=== PATIENT | female | born 1945 | race Caucasian/White ===

== ENCOUNTER → 2023-09-21 12:53 | Outpatient (REF) | payer MEDICARE, SELFPAY | LOC: HWRAD 12:53 | PROVIDERS: ATTENDING PHYSICIAN Internal Medicine; FAMILY PHYSICIAN Family Medicine | DX: I65.23 Occlusion and stenosis of bilateral carotid arteries (principal) | CPT/HCPCS: 93880 ==

== ENCOUNTER → 2023-12-30 12:51 | Outpatient (REF) | payer MEDICARE, SELFPAY | LOC: RCS 12:51 | PROVIDERS: ATTENDING PHYSICIAN Internal Medicine; FAMILY PHYSICIAN Family Medicine | DX: I25.10 Atherosclerotic heart disease of native coronary artery without angina pectoris (principal); I21.4 Non-ST elevation (NSTEMI) myocardial infarction; I34.0 Nonrheumatic mitral (valve) insufficiency; I35.1 Nonrheumatic aortic (valve) insufficiency; I50.32 Chronic diastolic (congestive) heart failure; I65.23 Occlusion and stenosis of bilateral carotid arteries | CPT/HCPCS: 93306 ==

== ENCOUNTER → 2024-01-21 14:50 | Outpatient (REF) | payer MEDICARE, SELFPAY | LOC: RAD 14:50 | PROVIDERS: ATTENDING PHYSICIAN Internal Medicine; FAMILY PHYSICIAN Family Medicine | DX: I25.10 Atherosclerotic heart disease of native coronary artery without angina pectoris (principal); I73.9 Peripheral vascular disease, unspecified | CPT/HCPCS: 93922; 93925 ==

== ENCOUNTER 2024-06-14 03:30 | Inpatient (IN) | payer MEDICARE, SELFPAY ==
[2024-06-14] VITALS (11 sets, daily range): BP systolic 110–177; BP diastolic 44–76; BMI 23.6; BMI 24.2
--- NOTE | 2024-06-14 01:16 | ED.GENMED ---
History of Present Illness
General
Chief Complaint: Rectal Bleeding
Source: patient
Exam Limitations: none
Time Seen by Provider: 06/14/24 01:12
History of Present Illness
History of Present Illness:
See MDM
Past History
Past History
ED Past Medical History: CAD, COPD, HTN, Hypercholesterolemia, IDDM and OH (Non-STEMI May 2020)
ED Past Surgical History: Cardiac (Stent cardiac; PTCA x3 to the RCA x1 to the LAD May 2020) and Orthopedic (ORIF right humerus fracture May 2020)
Social History
Tobacco: Former smoker
Alcohol: None
Drug: None
Personal:
Living: alone
Employment: Retired
Family History
Family History: Other (Noncontributory)
Phy Exam
Physical Exam
Physical Exam:
See MDM
Course
Orders/Labs/Results
Orders:
Orders
06/14/24 01:18
Type+Screen Urgent
Complete Blood Count/With Diff Urgent
Comprehensive Metabolic Panel Urgent
Abnormal Lab Results
06/14/24
01:18
WBC 13.4 H 10^3/uL
(4.8-10.8)
Hgb 10.8 L g/dL
(12.0-16.0)
Hct 33.9 L %
(37.0-47.0)
MCV 75.3 L fL
(81.0-99.0)
MCH 24.0 L pg
(27.0-31.0)
MCHC 31.9 L g/dL
(33.0-37.0)
RDW 18.6 H %
(11.5-14.5)
Abs Immat Gran (auto) 0.1 H 10^3/uL
(0-0.05)
Absolute Neuts (auto) 10.2 H 10^3/uL
(1.4-6.5)
Absolute Monos (auto) 0.9 H 10^3/uL
(0.1-0.6)
Neutrophils % 75.8 H %
(42.2-75.2)
Lymphocytes % 14.6 L %
(20.5-51.1)
Carbon Dioxide 19 L mmol/L
(22-30)
BUN 19 H mg/dl
(7-17)
Creatinine 0.5 L mg/dL
(0.6-1.0)
Glucose 174 H mg/dl
(70-99)
06/14/24 01:18
06/14/24 01:18
Vital Signs
Initial and Last Documented VS:
Initial Vital Signs
Temp Pulse Resp BP Pulse Ox
98.3 F 78 14 164/53 96
06/14/24 01:05 06/14/24 01:05 06/14/24 01:05 06/14/24 01:05 06/14/24 01:05
Last Documented Vital Signs
Temp Pulse Resp BP Pulse Ox
98.3 F 69 17 164/53 95
06/14/24 01:05 06/14/24 01:45 06/14/24 01:45 06/14/24 01:11 06/14/24 01:45
MDM/Problems Addressed
Differential Diagnosis Includes:
HPI and MDM Narrative:
78-year-old female presenting for evaluation of rectal bleeding. Patient noted abdominal cramping approximately 2 hours ago. Then, she has had 3 large bright red rectal bleeds. Patient states this is very similar to prior episodes of
diverticulosis. She denies abdominal pain. Patient is on blood thinners states she no longer takes Plavix. Patient states she has required blood transfusions in the past for this. At 1 point, she states the colorectal surgeon wanted to remove
part of her colon.
On exam, patient is pale but she is otherwise well-appearing. Abdomen otherwise soft and nontender. Given her history, obtain hemoglobin testing and type and screen
Physical exam
General: Well appearing and non-toxic
HEENT: protecting airway
Neck: appears supple
CV: No evidence of cyanosis
Resp: No accessory muscle use
Abd: Non-distended. Soft and nontender
Extremities: No deformities
Neuro: alert
Psych: Normal affect
Skin: Pale
Problems Addressed including Acute and Chronic Conditions affecting care:
1. Bright red rectal bleeding
Acuity: acute
Prognosis: unstable
Details: Given her prior history, will obtain hemoglobin testing and type and screen with concern for anemia requiring blood transfusion
Updates
Hemoglobin seems to be at baseline. Will admit for hemoglobin trending and further evaluation
Differential Diagnosis (but not limited to): Diverticulosis, lower GI bleeding
Testing considered: Bleeding scan
Drug therapy (if applicable): OTC meds, please see d/c instruction regarding Rx drugs
Amount and/or Complexity of Data Reviewed
Clinical info obtained from: Patient
External data reviewed: N/A
Labs I independently reviewed (but not limited to): Mild anemia
Radiology: N/A
Pulse Ox: not hypoxic
EKG independently reviewed: N/A
Coverer: N/A
Critical Care: N/A
Risk of Complication:
Social Determinants of health: Good social support
Discussed with other providers: Hospitalist
Escalation of Care includes Admit/Obs: Given history of bleeding requiring blood transfusion, will admit for hemoglobin trending
Occasional wrong word or 'sound a like' substitutions may have occurred due to the inherent limitations of voice recognition software. Read the chart carefully and recognize, using context, where substitutions have occurred.
*Critical Care Note
Total Time (30-74mins, 75-104mins- exclusive of procedures): Not Applicable
ED Attending Note
-
Portions of this chart may have been created with voice recognition software.� Occasional wrong word or��sound alike� substitutions may have occurred due to the inherent limitations of voice recognition software.
Discharge Plan
Departure
Patient Disposition: Admit
Date of Disposition: 06/14/24
Time of Disposition: 02:00
Admit to: Med/Surg
Presentation/result/management discussed w/ accepting MD/DO: Hospitalist
Discharge Problem:
Acute lower GI bleeding
Prescriptions:
No Action
lorazepam 0.5 MG tablet
0.5 mg PO HSPRN PRN (Reason: sleep)
Patient Comments:
12/10/20: last filled 12/02/20, 180 tabs for 90 days from [facility]
pantoprazole 40 MG tablet,delayed release (DR/EC)
40 mg PO DAILY
glipizide 5 MG tablet
5 mg PO BID
icosapent ethyl [Vascepa] 1 GM capsule
2 gm PO QID
evolocumab [Repatha SureClick] 140 MG/ML pen injector
140 mg SC Q14D
insulin degludec [Tresiba U-100 Insulin] 100 UNIT/ML solution
10 unit SQ HS
carvedilol 12.5 MG tablet
25 mg PO BID Qty: 60 0RF
clopidogrel 75 MG tablet
75 mg PO DAILY Qty: 30 0RF
amlodipine 2.5 MG tablet
2.5 mg PO DAILY
acetaminophen [Tylenol Extra Strength] 500 MG tablet
1,000 mg PO BIDPRN PRN (Reason: mild pain)
valsartan 80 MG tablet
80 mg PO DAILY
empagliflozin [Jardiance] 10 MG tablet
10 mg PO DAILY Qty: 90 5RF
isosorbide mononitrate 60 MG tablet extended release 24 hr
60 mg PO HS Qty: 1 0RF
metformin 1,000 MG tablet
1,000 mg PO BID@0800,1700 Qty: 1 0RF
Rx Instructions:
resume on Wednesday pm
furosemide 20 MG tablet
20 mg PO DAILY Qty: 90 5RF
aspirin 81 MG tablet,chewable
81 mg PO HS Qty: 0 0RF
Referrals:
Nadeem Torres DO [Family Provider] -
Interventions
Interventions:
*Risk Screen - Suicide Last Done: 06/14/24 01:05
*General Assessment Last Done: 06/14/24 01:05
*Neglect/Abuse Screening Last Done: 06/14/24 01:05
*ED- Fall Risk Assessment Last Done: 06/14/24 01:18
*ED COVID-19 Vaccine History Last Done: 06/14/24 01:18
XA-Sxukfb-Wvdzurzvus Assessment Last Done: 06/14/24 01:18
ED- Cardiac Assessment Last Done: 06/14/24 01:18
ED- Pulmonary Assessment Last Done: 06/14/24 01:18
Discharge Date and Time
Print Language: SAMMARINESE
[2024-06-14 01:25] LABS: % Basophils 0.5 % (0-2); % Eosinophils 2.3 % (0-6); % Immature Granulocytes 0.4 % (0-0.5); % Lymphocytes 14.6 % (20.5-51.1); % Monocytes 6.4 % (1.7-9.3); % Neutrophils 75.8 % (42.2-75.2); Absolute Basophils 0.1 10^3/uL (0-0.2); Absolute Eosinophils 0.3 10^3/uL (0-0.7); Absolute Immature Granulocytes 0.1 10^3/uL (0-0.05); Absolute Monocytes 0.9 10^3/uL (0.1-0.6); Absolute Neutrophils 10.2 10^3/uL (1.4-6.5); Hematocrit 33.9 % (37.0-47.0); Hemoglobin 10.8 g/dL (12.0-16.0); Mean Corp Hgb Conc. 31.9 g/dL (33.0-37.0); Mean Corpuscular Volume 75.3 fL (81.0-99.0); Mean Platelet Volume 8.8 fL (7.4-10.4); Nucleated Red Blood Cells % 0 %; Platelet Count 286 10^3/uL (130-400); Red Cell Dist. Width 18.6 % (11.5-14.5); White Blood Cell Count 13.4 10^3/uL (4.8-10.8)
[2024-06-14 01:52] LABS: ALT (SGPT) 19 U/L (0-35); AST (SGOT) 27 U/L (14-36); Albumin 4.8 g/dl (3.5-5.0); Alkaline Phosphatase 78 U/L (38-126); Blood Urea Nitrogen 19 mg/dl (7-17); Carbon Dioxide 19 mmol/L (22-30); Chloride 101 mmol/L (98-107); Estimated Creatinine Clearance 65 ml/min; Glucose 174 mg/dl (70-99); Potassium 4.4 mmol/L (3.5-5.1); Sodium 138 mmol/L (135-145); Total Bilirubin 0.9 mg/dl (0.2-1.3); Total Protein 7.4 g/dl (6.3-8.2); eGFR > 60.00
--- NOTE | 2024-06-14 02:47 | HPS.HSE ---
Family Physician
-
Family Physician: Nadeem Torres
Chief Complaint
-
Rectal Bleeding
History of Present Illness
Patient is a 78y F with PMH significant for ASCVD, hypertension and diverticular disease who presents to ED complaining of BRBPR. Patient states that she had 3 episodes of BRBPR between 11-12 this evening. She reports about 1 cup total volume.
She noted some crampy lower abdominal discomfort just prior to passing blood. No syncope / LOC though she did feel somewhat lightheaded at home. Patient states that she had some loose stools this afternoon. She also notes that she lifted heavy
boxes of cat liter earlier in the day - which is unusual for her. No fevers / chills. No urinary complaints. No N/V.
Patient has prior history of multiple episodes of diverticular bleeding. Most recent was October 2023 when she had two episodes (hospitalized at [facility]).
Patient was on Plavix at that time which was subsequently discontinued. She is currently only on ASA (has 7 coronary stents).
Medical History
Past Medical History
Past Medical History: Reports Other
Additional Past Medical History:
ASCVD
Hypertension
DM-II
COPD
Polymyositis
Diverticulosis
Past Surgical History: Reports Other
Additional Past Surgical History:
Left Lumpectomy
Cataracts
Right Humerus ORIF
PTCA with Stents
Social History
Tobacco: Former Smoker (Quit in 2000.)
Alcohol: None
Drug: None
Family History
Family History: Not pertinent
Allergies / Home Medications
Allergies reflects when Allergies were last updated in [facility].
Home Medications with original date entered in [facility]
Allergy/Medication List:
Allergies
Allergy/AdvReac Type Severity Reaction Status Date / Time
adhesive Allergy Unknown Verified 12/10/20 11:40
Home Medications
evolocumab 140 mg/mL subcutaneous pen injector (Repatha SureClick) 140 mg SC Q14D High cholesterol 05/22/20
icosapent ethyl 1 gram capsule (Vascepa) 2 gm PO QID Heart disease/condition 05/22/20
lorazepam 0.5 mg tablet 0.5 mg PO HSPRN PRN sleep 05/22/20
pantoprazole 40 mg tablet,delayed release 40 mg PO DAILY 05/22/20
insulin degludec 100 unit/mL subcutaneous solution (Tresiba U-100 Insulin) 14 unit SQ HS Diabetes 08/11/20
carvedilol 12.5 mg tablet 25 mg (2 x 12.5 mg) PO BID Heart disease/condition #60 tabs 08/13/20
valsartan 80 mg tablet 80 mg PO DAILY Heart disease/condition 12/10/20
aspirin 81 mg chewable tablet 81 mg PO HS Blood clot prevention/tx ##0 12/12/20
empagliflozin 10 mg tablet (Jardiance) 10 mg PO DAILY #90 tabs 12/12/20
furosemide 20 mg tablet 20 mg PO DAILY Fluid retention/Swelling #90 tabs 12/12/20
isosorbide mononitrate 60 mg tablet,extended release 24 hr 60 mg PO HS ##1 12/12/20
metformin 1,000 mg tablet 1,000 mg PO BID@0800,1700 Diabetes ##1 12/12/20
ezetimibe 10 mg tablet (Zetia) 10 mg PO DAILY 06/14/24
Review of Systems
-
History Source: Patient
A 12 point ROS was completed and negative except as noted: Yes
Constitutional: Denies Fever or Chills
Respiratory: Denies Cough or Trouble Breathing
Cardiac: Denies Chest Pain or Palpitations
Abdomen/GI: Reports Diarrhea and Bloody Stools; Denies Abdominal Pain, Nausea or Vomiting
: Denies Dysuria, Frequency or Flank Pain
Musculoskeletal: Denies Joint Pain or Edema
Neurological: Denies Dizzy or Headache
Psych: Denies Depression or Anxiety
Physical Exam
Vital Signs
Vital Signs
Temp Pulse Resp BP Pulse Ox
98.3 F 76 19 130/51 94
06/14/24 01:05 06/14/24 02:00 06/14/24 02:00 06/14/24 02:00 06/14/24 02:00
Physical Exam
General: Other (78y F in no acute distress.)
HEENT: Moist mucous membranes and PERRLA
Respiratory: Clear; No Wheezes, Rales or Rhonchi
Cardiac: S1/S2 and Regular Rhythm; No Murmur
GI: Soft, Non Tender, Non Distended and Normal Bowel Sounds
Musculoskeletal: No Clubbing, No Cyanosis and No Edema
Neuro: AO x 3
Laboratory Results
-
06/14/24 01:18
06/14/24 01:18
Laboratory Results
Total Bilirubin 0.9 mg/dl (0.2-1.3) 06/14/24 01:18
AST 27 U/L (14-36) 06/14/24 01:18
ALT 19 U/L (0-35) 06/14/24 01:18
Alkaline Phosphatase 78 U/L (38-126) 06/14/24 01:18
Impression/Plan
-
A/P: Patient is a 78y F with PMH significant for hypertension, DM-II and diverticular disease who presents to ED complaining of BRBPR this evening.
Lower GI Bleed - Likely Diverticular
Microcytic Anemia secondary to the above
- Admit for further evaluation and treatment.
- Hgb / BP stable at present.
- Follow for further bleeding episodes.
- Consider CTA if additional bleeding, hypotension, etc.
- GI evaluation for additional recommendations.
- Follow H&H and transfuse if needed.
ASCVD
- Stable. No chest pain, dyspnea, etc.
- Hold ASA acutely given active bleeding - resume ESTHER.
- Continue carvedilol, statin, etc.
Benign Hypertension
- Hold some home medications acutely given bleeding / volume loss.
- Adjust regimen as needed for adequate control.
DM-II
- Stable. Hold PO medications.
- Follow glucose and cover with SSI as needed.
- Update A1C.
COPD
- Stable. No dyspnea, etc.
- Albuterol PRN.
DVT Prophylaxis: SCDs
Code Status: Full
[2024-06-14 03:29] LABS: Lactic Acid 3.8 mmol/L (0.7-2.0)
[2024-06-14 06:16] LABS: Glucose - Point of Care 122 mg/dl (70-99)
[2024-06-14] MEDS: NOVOLOG FLEXPEN-LOW RESISTANCE SC ×2 (06:18→17:36)
[2024-06-14 06:22] LABS: Hematocrit 30.2 % (37.0-47.0); Hemoglobin 9.8 g/dL (12.0-16.0)
[2024-06-14 06:49] LABS: Blood Urea Nitrogen 19 mg/dl (7-17); Calcium 9.9 mg/dl (8.4-10.2); Carbon Dioxide 24 mmol/L (22-30); Chloride 102 mmol/L (98-107); Estimated Creatinine Clearance 62 ml/min; Glucose 132 mg/dl (70-99); Potassium 4.1 mmol/L (3.5-5.1); Sodium 137 mmol/L (135-145); eGFR > 60.00
--- NOTE | 2024-06-14 08:30 | W.PN.HOSP.TC ---
Today's Communication/Plan
-
See plan
Assessment / Plan
Assessment / Plan
Physical Exam
General: Not in acute distress
HEENT: Moist mucous membranes
Respiratory: Clear to Auscultation Bilaterally
Cardiac: S1/S2 and Regular Rate and Rhythm
GI: Soft, Non Tender, Non Distended and Normal Bowel Sounds
Musculoskeletal: No Cyanosis and No Edema
Neuro: AAO x 3. Nonfocal/grossly intact bilaterally.
Assessment/Plan
Patient is a 78y F with PMH significant for hypertension, DM-II and diverticular disease who presents to ED complaining of BRBPR this evening.
Lower GI Bleed - Likely Diverticular
Microcytic Anemia secondary to the above
History of Iron Deficiency Anemia
- Hgb / BP stable at present.
- Follow for further bleeding episodes.
- Consider CTA if additional bleeding, hypotension, etc.
- GI evaluation for additional recommendations.
- Follow H&H and transfuse if needed.
- IV iron
- PPI daily
- Okay for clear liquids diet
ASCVD
- Stable. No chest pain, dyspnea, etc.
- Continue Aspirin 81 mg daily. Patient's high-dose fish oil is currently on hold due to risk of bleeding.
- Continue carvedilol, statin, etc.
- Patient follows Dr. Cantu in cardiology outpatient
Benign Hypertension
- Adjust regimen as needed for adequate control.
DM-II
- Stable. Hold PO medications.
- Follow glucose and cover with SSI as needed.
- A1C is 6.5% -- but this could be false given bleeding and the history of iron deficiency anemia
COPD
- Stable. No dyspnea, etc.
- Albuterol PRN.
DVT Prophylaxis: SCDs
Code Status: Full
Anticipated Discharge: 24 - 48 hours
Subjective/Interval History
-
Date of Service: June 14, 2024
Patient was seen and examined. She denied any bowel movements this morning. She denied any symptoms or complaints.
Objective Data
-
Labs:
Laboratory Results
06/14/24 06/14/24 06/14/24
01:18 05:43 10:16
WBC 13.4 H
Hgb 10.8 L 9.8 L Pending
Hct 33.9 L 30.2 L Pending
Plt Count 286
Sodium 138 137
Potassium 4.4 4.1
Chloride 101 102
Carbon Dioxide 19 L 24
BUN 19 H 19 H
Creatinine 0.5 L 0.5 L
Glucose 174 H 132 H
Calcium 10.0 9.9
Total Bilirubin 0.9
AST 27
ALT 19
Alkaline Phosphatase 78
06/14/24 06/14/24
16:16 22:16
WBC
Hgb Pending Pending
Hct Pending Pending
Plt Count
Sodium
Potassium
Chloride
Carbon Dioxide
BUN
Creatinine
Glucose
Calcium
Total Bilirubin
AST
ALT
Alkaline Phosphatase
Vital Signs:
Vital Signs
Temp Pulse Resp BP Pulse Ox
98 F 73 18 137/58 97
06/14/24 08:02 06/14/24 08:02 06/14/24 08:02 06/14/24 08:02 06/14/24 08:02
[2024-06-14] MEDS: PROTONIX IV 40 MG IV (09:06)
[2024-06-14] MEDS: COREG 25 MG PO ×2 (09:06→19:40)
[2024-06-14] MEDS: DIOVAN 80 MG PO (09:06)
[2024-06-14] MEDS: NSS (PRESERVATIVE FREE) 10 ML IV (09:06)
[2024-06-14 09:21] LABS: Glycohemoglobin (HgbA1c) 6.5 % (4.0-5.6)
--- NOTE | 2024-06-14 09:33 | CON.GI ---
Addendum entered and electronically signed by Adenike Martinez DO 06/14/24 11:17:
Patient seen and examined independently of [employer]SE DEVELOPER. I agree with her note with my additions below
Patricia is a 78-year-old female with significant cardiovascular disease status post multiple stents known to Dr. Cantu currently only on aspirin because of multiple prior diverticular bleeds and chronic iron deficiency anemia who was admitted to
[facility] on 06/14/2024 with recurrent lower GI bleeding. She has had a roughly 5 admissions for diverticular bleeding dating back to 2018 with most recent bleeds in October 2023 at [facility]. She has had no admissions here at [facility] for these
bleeds. She has been at [facility], [facility] and [facility] with most recent at [facility] in October 2023. She often gets transfused. She states she has had positive bleeding scans both at the splenic flexure and the left colon. She
had a surgical consult but refused at that time. Also back in the summer 2023 she was on both aspirin and Plavix. Because of her persistent bleeding and also persistent iron deficiency anemia she was taken off the Plavix and left only on iron.
She is also on high-dose fish oil. She is also diabetic. She has had no abdominal surgeries.
At home she had roughly 3-4 episodes of about less than a cup of bright red blood. She had no significant abdominal pain. She did feel a little lightheaded at 1 point. Her hemoglobin on admission was 10.8 and this morning 10.2. Her baseline is
between 9 and 10. She states she is chronically iron deficient and gets iron infusions outpatient. She had an iron deficiency workup as well with Dr. Ghosh at [place] in the past including an endoscopy, capsule endoscopy and she has had multiple
colonoscopies with no other source per patient other than her chronic diverticular bleeds. She states she has pandiverticulosis.
Currently she is hemodynamically stable with a blood pressure of 137/58 with a heart rate of 73. She has beta blocked. Her MCV is 75 her liver enzymes are normal her BUN is mildly elevated at 19 with a creatinine of 0.5. She does have antibodies
to her O- blood.
Patient denies any significant upper GI symptoms. Her GI doctor that she saw with [facility] was Dr. Jean Baptiste
# Hemodynamically stable hematochezia with no significant drop in baseline hemoglobin
-- Based on the patient's known diverticular bleeds in the past as well as her clinical presentation this is most likely a recurrent diverticular bleed
-- She is currently hemodynamically stable and her hemoglobin is at baseline
-- No transfusion requirement
- -Will give her IV iron with an MCV of 75 and known iron deficiency outpatient, added on ferritin to this morning's labs
-- Once daily PPI is fine, continue her aspirin. Her high dose fish oil is currently on hold
--She is known to Dr. Cantu in cardiology
--Okay for clear liquids, monitor clinical status and hemoglobins
Original Note:
Consultation
-
Date/Time Consultation Requested: 06/14/241
Date/Time Consultation Performed: 06/14/24 [id number]
Requesting Provider: Dr. Spicer
Performing Provider: Dr. Martinez/MARVIN Mckee
Reason for Consultation: rectal bleeding
Medical History
Chief Complaint / HPI
Chief Complaint: Rectal bleeding
History of Present Illness:
78-year-old female with past medical history of CAD status postcardiac stents (05/2020), non-ST elevated MT, pericardial effusion, nonrheumatic mitral valve regurgitation, nonrheumatic aortic valve insufficiency, chronic heart failure with preserved
ejection fraction, COPD, hypertension, hyperlipidemia, multiple episodes of diverticular bleeding dating back to 2018 with most recent in October 2023 presents to the emergency room with rectal bleeding. Asked to evaluate for the same. The patient
states last night around 11 PM she had an episode of rumbling and urgency to have a bowel movement followed by quarter cup of bright red blood. Shortly after she had an episode of approximately half a cup of bright red blood followed by 1/8 of a
cup of bright red blood. At that point she came to the hospital given her prior history of GI bleeds. She has not had any further episodes of bleeding since. No bowel movements. She is passing flatus. She did feel slightly weak last evening.
She does have an extensive history of GI bleeding in the past. The patient's prior GI history of rectal bleeding dates back to her first episode of rectal bleeding in 2018 with diverticular bleeding requiring blood transfusions at that time.
([facility]) she states they thought that it was associated with Aleve. She had a second diverticular bleed in 2018 ([facility]) requiring blood transfusions, she states that the sites of bleeding's were in the 'lower part of the
colon below the splenic flexure'. The patient's second and third GI bleeding occurred in October 2023 ([facility]) while on Plavix. She required IR intervention, however she states she stopped bleeding by the time the procedure was
performed. She did state that the area of concern was in the area of the 'spleen part of the colon' she did require blood during that hospitalization as well. She came back 8 days later with recurrent GI bleed. She did not require any blood
transfusions on that admission. She did have a colonoscopy. It did confirm area of diverticular bleeding. She was taken off Plavix at this point. Currently the patient is only taken aspirin 81 mg at bedtime. She does not use any other NSAIDs.
She is on Vascepa. She only uses Tylenol. She make sure to follow a very good diet and has soft formed bowel movement at least twice a day. She avoids any sort of constipation. She denies any fevers, chills, nausea, vomiting, melena, dysphagia
or dyne aphasia. No early satiety or unintentional weight loss. Prior to the colonoscopy she had in October her prior colonoscopy was 2 years prior to that. She denies any family history of gastrointestinal malignancy or IBD. WBC 13.4, hemoglobin
9.8 down from 10.8, hematocrit 30.2, platelets 286. Vital signs stable. Blood pressure 137/58 pulse 73. No imaging.
Past Medical History
Past Medical History: CAD, COPD, HTN, IDDM and Other (Diverticular bleed x 5, polymyositis, non-ST elevated MT, pericardial effusion, nonrheumatic mitral valve regurgitation, nonrheumatic aortic valve insufficiency chronic heart failure with
preserved ejection fraction, breast cancer)
Past Surgical History: Other (Left breast lumpectomy, cataracts, right humerus ORIF, cardiac stent)
Social History
Tobacco: Non-Smoker
Alcohol: None
Drug: None
Personal:
Living: Alone
Employment: Retired
Family History
Family History: Other (No family history of gastrointestinal malignancy or IBD)
Allergies / Home Medications
Allergy/AdvReac Type Severity Reaction Status Date / Time
adhesive Allergy Unknown Verified 12/10/20 11:40
�Medication �Instructions �Recorded
evolocumab 140 mg/mL subcutaneous 140 mg SC Q14D High cholesterol 05/22/20
pen injector (Repatha SureClick)
icosapent ethyl 1 gram capsule 2 gm PO QID Heart disease/condition 05/22/20
(Vascepa)
lorazepam 0.5 mg tablet 0.5 mg PO HSPRN PRN sleep 05/22/20
pantoprazole 40 mg tablet,delayed 40 mg PO DAILY 05/22/20
release
insulin degludec 100 unit/mL 14 unit SQ HS Diabetes 08/11/20
subcutaneous solution (Tresiba
U-100 Insulin)
carvedilol 12.5 mg tablet 25 mg (2 x 12.5 mg) PO BID Heart 08/13/20
disease/condition #60 tabs
valsartan 80 mg tablet 80 mg PO DAILY Heart 12/10/20
disease/condition
aspirin 81 mg chewable tablet 81 mg PO HS Blood clot 12/12/20
prevention/tx ##0
empagliflozin 10 mg tablet 10 mg PO DAILY #90 tabs 12/12/20
(Jardiance)
furosemide 20 mg tablet 20 mg PO DAILY Fluid 12/12/20
retention/Swelling #90 tabs
isosorbide mononitrate 60 mg 60 mg PO HS ##1 12/12/20
tablet,extended release 24 hr
metformin 1,000 mg tablet 1,000 mg PO BID@0800,1700 Diabetes 12/12/20
##1
ezetimibe 10 mg tablet (Zetia) 10 mg PO DAILY 06/14/24
Review of Systems
-
All other systems: A 12 pt ROS was Negative except as stated above in HPI
Vital Signs
Temp Pulse Resp BP Pulse Ox
98 F 73 18 137/58 97
06/14/24 08:02 06/14/24 09:06 06/14/24 08:02 06/14/24 09:06 06/14/24 08:02
Physical Exam
Exam
General: No Apparent Distress
HEENT: Anicteric
Respiratory: Clear
Cardiac: Regular Rhythm
GI: Soft, Non Tender, Non Distended and Normal Bowel Sounds
Musculoskeletal: No Edema
Skin: Warm and Dry
Neuro: AO x 3
Psych: Calm
Results
WBC 13.4 10^3/uL (4.8-10.8) H 06/14/24 01:18
Hgb 9.8 g/dL (12.0-16.0) L 06/14/24 05:43
Hct 30.2 % (37.0-47.0) L 06/14/24 05:43
MCV 75.3 fL (81.0-99.0) L 06/14/24 01:18
Plt Count 286 10^3/uL (130-400) 06/14/24 01:18
Absolute Neuts (auto) 10.2 10^3/uL (1.4-6.5) H 06/14/24 01:18
Sodium 137 mmol/L (135-145) 06/14/24 05:43
Potassium 4.1 mmol/L (3.5-5.1) 06/14/24 05:43
Chloride 102 mmol/L (98-107) 06/14/24 05:43
Carbon Dioxide 24 mmol/L (22-30) 06/14/24 05:43
BUN 19 mg/dl (7-17) H 06/14/24 05:43
Creatinine 0.5 mg/dL (0.6-1.0) L 06/14/24 05:43
Calcium 9.9 mg/dl (8.4-10.2) 06/14/24 05:43
Total Bilirubin 0.9 mg/dl (0.2-1.3) 06/14/24 01:18
AST 27 U/L (14-36) 06/14/24 01:18
ALT 19 U/L (0-35) 06/14/24 01:18
Alkaline Phosphatase 78 U/L (38-126) 06/14/24 01:18
Diagnostic Image Results:
None
Prior GI Procedures:
EGD: Never
Colonoscopy: Patient states had colonoscopy at [facility] October 2023. Records unavailable to myself. States she had 'diverticulosis throughout her entire large bowel'
Assessment / Plan
-
78-year-old female with past medical history of CAD status postcardiac stents (05/2020), non-ST elevated MT, pericardial effusion, nonrheumatic mitral valve regurgitation, nonrheumatic aortic valve insufficiency, chronic heart failure with preserved
ejection fraction breast cancer, COPD, hypertension, hyperlipidemia, multiple episodes of diverticular bleeding dating back to 2017 with most recent in October 2023 presents to the emergency room with rectal bleeding. Asked to evaluate for the same.
The patient states last night around 11 PM she had an episode of rumbling and urgency to have a bowel movement followed by quarter cup of bright red blood. Shortly after she had an episode of approximately half a cup of bright red blood followed by
1/8 of a cup of bright red blood. At that point she came to the hospital given her prior history of GI bleeds. Patient with history of multiple GI bleeds presumed to be diverticular in nature per patient involving sigmoid colon while on Aleve in
the past (2017), unprovoked by NSAIDs in 2018, both requiring blood product transfusion. Repeat GI bleed October 2023 in the area of the splenic flexure while on aspirin and Plavix requiring blood transfusion and IR intervention for the first event,
however stopped bleeding spontaneously. Second event 8 days later requiring colonoscopy. At that point no blood products and required. Taken off Plavix at that point. Has remained on aspirin ever since. Currently presents with acute onset of
bleeding last night at 11 PM that is painless starting with quarter cup of blood, followed by half cup of bright red blood then eighth cup of blood with no further bowel movements since arrival to emergency room. No bowel movements. Passing
flatus. Feeling of weakness hemoglobin currently 9.8 down from 10.8. Vital signs stable.
Impression:
Lower GI bleed, most likely diverticular in nature given prior history
Plan:
-Clear liquid diet, no red
-ASA has been held however given hx of multiple stents in the past would favor resuming.
-Trend Hgb
-CTA if with active GI bleeding
-Transfuse for Hgb < 7
-Obtain colonoscopy report from [facility]
-Hold Vascepa (at this time) as can increase risk of bleeding.
-Further recommendations to be forthcoming.
-
-
Thank you for consultation and allowing me to participate in the patient's care. Please call the operational intelligence analyst GI physician during the after hours with any questions or concerns.
[2024-06-14 10:21] LABS: % Basophils 0.6 % (0-2); % Immature Granulocytes 0.2 % (0-0.5); % Lymphocytes 25.8 % (20.5-51.1); % Monocytes 8.1 % (1.7-9.3); % Neutrophils 62.3 % (42.2-75.2); Absolute Eosinophils 0.2 10^3/uL (0-0.7); Absolute Lymphocytes 1.6 10^3/uL (1.2-3.4); Absolute Monocytes 0.5 10^3/uL (0.1-0.6); Absolute Neutrophils 3.9 10^3/uL (1.4-6.5); Hematocrit 31.7 % (37.0-47.0); Hemoglobin 10.2 g/dL (12.0-16.0); Mean Corp Hgb Conc. 32.2 g/dL (33.0-37.0); Mean Corpuscular Hgb 24.3 pg (27.0-31.0); Mean Corpuscular Volume 75.5 fL (81.0-99.0); Mean Platelet Volume 8.9 fL (7.4-10.4); Nucleated Red Blood Cells % 0 %; Platelet Count 273 10^3/uL (130-400); Red Cell Dist. Width 18.5 % (11.5-14.5); White Blood Cell Count 6.3 10^3/uL (4.8-10.8)
[2024-06-14 10:33] LABS: Lactic Acid 1.1 mmol/L (0.7-2.0)
[2024-06-14 12:06] LABS: Glucose - Point of Care 187 mg/dl (70-99)
[2024-06-14] MEDS: NOVOLOG FLEXPEN-LOW RESISTANCE 1 UNITS SC (12:34)
[2024-06-14] MEDS: LOW STRENGTH ASPIRIN 81 MG PO ×2 (12:34→19:40)
[2024-06-14] MEDS: ZETIA 10 MG PO (12:34)
[2024-06-14 12:46] LABS: Iron 33 ug/dl (37-170)
[2024-06-14 13:19] LABS: Ferritin 7.7 ng/ml (11.1-264.0)
[2024-06-14] MEDS: FERRLECIT 110 MG IV (13:52)
--- NOTE | 2024-06-14 16:22 | CM ---
Alert awake oriented patient who lives alone in a 1 story home with 1 steps to enter. She is independent in activates of daily living.She does drive .She used a cane.Offered Vn she declined .
She said her son would drive her home at mo.
Had [facility] in past . No SNF hx
Pharmacy [facility]
PCP Dr Huang
PLAN Home with no needs
[2024-06-14 16:51] LABS: Glucose - Point of Care 117 mg/dl (70-99)
[2024-06-14 17:02] LABS: Hemoglobin 10.5 g/dL (12.0-16.0)
[2024-06-14] MEDS: IMDUR (EXTENDED RELEASE) 60 MG PO (20:29)
[2024-06-14 21:06] LABS: Glucose - Point of Care 160 mg/dl (70-99)
[2024-06-14 22:58] LABS: Hematocrit 27.9 % (37.0-47.0); Hemoglobin 9.1 g/dL (12.0-16.0)
[2024-06-15 03:59] VITALS: BP 141/57
[2024-06-15 04:58] VITALS: BMI 23.6
[2024-06-15 06:21] LABS: Hematocrit 28.7 % (37.0-47.0); Hemoglobin 9.1 g/dL (12.0-16.0); Mean Corp Hgb Conc. 31.7 g/dL (33.0-37.0); Mean Corpuscular Hgb 23.9 pg (27.0-31.0); Mean Corpuscular Volume 75.5 fL (81.0-99.0); Platelet Count 241 10^3/uL (130-400); Red Cell Dist. Width 18.4 % (11.5-14.5); White Blood Cell Count 5.5 10^3/uL (4.8-10.8)
[2024-06-15 06:49] LABS: Blood Urea Nitrogen 13 mg/dl (7-17); Calcium 9.5 mg/dl (8.4-10.2); Carbon Dioxide 24 mmol/L (22-30); Chloride 106 mmol/L (98-107); Estimated Creatinine Clearance 62 ml/min; Glucose 131 mg/dl (70-99); Potassium 3.8 mmol/L (3.5-5.1); Sodium 138 mmol/L (135-145); eGFR > 60.00
[2024-06-15 08:07] VITALS: BP 130/53
[2024-06-15 08:32] LABS: Glucose - Point of Care 127 mg/dl (70-99)
[2024-06-15] MEDS: NOVOLOG FLEXPEN-LOW RESISTANCE SC ×2 (09:26→16:47)
[2024-06-15] MEDS: DIOVAN 80 MG PO (09:27)
[2024-06-15] MEDS: ZETIA 10 MG PO (09:27)
[2024-06-15] MEDS: PROTONIX IV 40 MG IV (09:27)
[2024-06-15] MEDS: COREG 25 MG PO ×2 (09:27→20:02)
[2024-06-15] MEDS: NSS (PRESERVATIVE FREE) 10 ML IV (09:28)
--- NOTE | 2024-06-15 11:02 | W.PN.GI.CBS2 ---
Addendum entered and electronically signed by Adenike Martinez DO 06/15/24 16:48:
Patient seen and examined independently of INSTRUCTIONAL CONSULTANT. I agree with her note with my additions below
Patricia has had 3 episodes from yesterday until this morning but no further since this morning. Her vital signs are stable. She is not tachycardic but she has beta-blockers. Her hemoglobin stable. She is getting IV iron. She is not symptomatic in
any way
-- Advance to full liquids
-- no need for any bleeding studies since she is barely bleeding and it will be negative
--- Bleeding studies are only helpful if patients are rapidly bleeding and practically unstable
-- Told patient she should highly consider talking to colorectal surgery since this is her sixth diverticular bleed all from the left side -we do not have her imaging of these prior bleeds as they are from multiple institutions including [place]
[place] [facility]
-- Patient is willing to talk to colorectal surgery. If she continues to bleed we will call them or she can see them outpt for a conversation
-- She wants to follow-up with us outpatient and I am happy to see her in follow-up
Original Note:
Today's Communication / Plan
-
1 brown stool with streaks of blood 7pM 06/14, burgundy stool overnight, then moderate stool with clots 11 AM 06/15
reviewed with patient she has hx multiple GI bleed with prior + CTA then neg angio
will monitor for now -- if further bleeding today proceed with CTA if + angio
hbg stable 9.1 transfuse less than 7
I discussed Vascepa -- she will review with Dr. Cantu of follow up for continuing medication
cont PPI daily
ok for clear diet as tolerated
await [place] records
she has seen Dr. Ghosh for years when she lived in [place]. She now lives locally and wishes to keep all care at [facility] as follow here for cardiac care. Will need GI follow up on discharge.
Assessment / Plan
-
78-year-old female with past medical history of CAD status postcardiac stents (05/2020), non-ST elevated CT, pericardial effusion, nonrheumatic mitral valve regurgitation, nonrheumatic aortic valve insufficiency, chronic heart failure with preserved
ejection fraction breast cancer, COPD, hypertension, hyperlipidemia, multiple episodes of diverticular bleeding dating back to 2017 with most recent in October 2023 presents to the emergency room with rectal bleeding. The patient states prior to
admission 11 PM she had an episode of rumbling and urgency to have a bowel movement followed by quarter cup of bright red blood. Shortly after she had an episode of approximately half a cup of bright red blood followed by 1/8 of a cup of bright red
blood. At that point she came to the hospital given her prior history of GI bleeds. Patient with history of multiple GI bleeds presumed to be diverticular in nature per patient involving sigmoid colon while on Aleve in the past (2017), unprovoked
by NSAIDs in 2018, both requiring blood product transfusion. Repeat GI bleed October 2023 in the area of the splenic flexure while on aspirin and Plavix requiring blood transfusion and IR intervention for the first event, however stopped bleeding
spontaneously. Second event 8 days later requiring colonoscopy. At that point no blood products and required. Taken off Plavix at that point. Has remained on aspirin ever since. She states she is chronically iron deficient and gets iron
infusions outpatient. She had an iron deficiency workup as well with Dr. Ghosh at [place] in the past including an endoscopy, capsule endoscopy and she has had multiple colonoscopies with no other source per patient other than her chronic
diverticular bleeds. She states she has pandiverticulosis. Her GI doctor that she saw with [facility] was Dr. Jean Baptiste
Laboratory Tests
06/14/24 06/14/24 06/14/24
05:43 10:01 16:51
Hgb 9.8 L 10.2 L 10.5 L
06/14/24 06/15/24
22:48 05:48
Hgb 9.1 L 9.1 L
Impression:
Lower GI bleed, most likely diverticular in nature given prior history
hx multiple GI bleeding in past
Plan:
1 brown stool with streaks of blood 7pM 06/14, burgundy stool overnight, then moderate stool with clots 11 AM 06/15
reviewed with patient she has hx multiple GI bleed with prior + CTA then neg angio
will monitor for now -- if further bleeding today proceed with CTA if + angio
hbg stable 9.1 transfuse less than 7
I discussed Vascepa -- she will review with Dr. Cantu of follow up for continuing medication
cont PPI daily
ok for clear diet as tolerated
await [place] records
she has seen Dr. Ghosh for years when she lived in [place]. She now lives locally and wishes to keep all care at [facility] as follow here for cardiac care. Will need GI follow up on discharge.
Subjective
Subjective
Date of Service: June 15, 2024
06/15/ bloody stool on clear diet
Objective
Data Reviewed
Laboratory Data:
Laboratory Results
06/15/24 05:48
06/15/24 05:48
Laboratory Results
Total Bilirubin 0.9 mg/dl (0.2-1.3) 06/14/24 01:18
AST 27 U/L (14-36) 06/14/24 01:18
ALT 19 U/L (0-35) 06/14/24 01:18
Alkaline Phosphatase 78 U/L (38-126) 06/14/24 01:18
Vital Signs and I&O:
Vital Signs
Temp Pulse Resp BP Pulse Ox
98 F 72 18 130/53 97
06/15/24 08:07 06/15/24 09:27 06/15/24 08:07 06/15/24 09:27 06/15/24 10:08
I&O
06/14/24 06/15/24 06/16/24
06:59 06:59 06:59
Intake Total 480 / 480
Balance 480 / 480
Physical Exam
Physical Exam
HEENT: Anicteric and Moist mucous membranes
Cardiology: Normal Sinus Rhythm
Pulmonary: Clear
GI: Soft, Non Distended and Tender (very minimal left sided tenderness )
Extremities: No Edema
Neuro: Non Focal
[2024-06-15 11:16] VITALS: BP 127/59
[2024-06-15 11:44] LABS: Glucose - Point of Care 262 mg/dl (70-99)
[2024-06-15] MEDS: NOVOLOG FLEXPEN-LOW RESISTANCE 3 UNITS SC (12:43)
[2024-06-15] MEDS: FERRLECIT 110 MG IV (13:23)
[2024-06-15 14:51] LABS: Hematocrit 29.9 % (37.0-47.0); Hemoglobin 9.6 g/dL (12.0-16.0)
--- NOTE | 2024-06-15 14:57 | W.PN.HOSP.TC ---
Today's Communication/Plan
-
Patient continues to have bloody stools/clots as of today
Discussed with GI, perform stat CTA angio if patient has multiple bloody or tarry dark large volume stools in a row
RBC transfusion to maintain Hgb>8
Assessment / Plan
Assessment / Plan
Physical Exam
General: Not in acute distress
HEENT: Moist mucous membranes
Respiratory: Clear to Auscultation Bilaterally
Cardiac: S1/S2 and Regular Rate and Rhythm
GI: Soft, Non Tender, Non Distended and Normal Bowel Sounds
Musculoskeletal: No Cyanosis and No Edema
Neuro: AAO x 3. Nonfocal/grossly intact bilaterally.
Assessment/Plan
Patient is a 78y F with PMH significant for hypertension, DM-II and diverticular disease who presents to ED complaining of BRBPR this evening.
Lower GI Bleed - Likely Diverticular
Microcytic Anemia secondary to the above
History of multiple GI bleed with prior + CTA then neg angio
History of Iron Deficiency Anemia
- Hgb / BP stable at present, but patient continues to have bloody stools/clots as of today
- If further bleeding today proceed with CTA if + angio
- GI evaluation for additional recommendations.
- Follow H&H and transfuse as needed to maintain
- IV iron
- Continue PPI daily
- Okay for clear liquids diet as tolerated
CAD status postcardiac stents (05/2020)
Non-ST elevated MO
ASCVD
- Stable. No chest pain, dyspnea, etc.
- Continue Aspirin 81 mg daily. Patient's high-dose fish oil (Vascepa) is currently on hold due to risk of bleeding -- patient will discuss with Dr. Cantu regarding whether to resume this medication
- Continue carvedilol, statin, etc.
- Patient follows Dr. Cantu in cardiology outpatient
Benign Hypertension
- Adjust regimen as needed for adequate control.
DM-II
- Stable. Hold PO medications.
- Follow glucose and cover with SSI as needed.
- A1C is 6.5% -- but this could be false given bleeding and the history of iron deficiency anemia
COPD
- Stable. No dyspnea, etc.
- Albuterol PRN.
Hyperlipidemia
History of pericardial effusion
History of nonrheumatic mitral valve regurgitation
History of nonrheumatic aortic valve insufficiency
Chronic heart failure with preserved ejection fraction
Breast cancer
DVT Prophylaxis: SCDs only.
Code Status: Full
Anticipated Discharge: > 48 hours
Subjective/Interval History
-
Date of Service: June 15, 2024
Patient was seen and examined. She continued to have bloody stools and clots overnight and this morning.
Objective Data
-
Labs:
Laboratory Results
06/15/24 06/15/24
05:48 14:12
WBC 5.5
Hgb 9.1 L 9.6 L
Hct 28.7 L 29.9 L
Plt Count 241
Sodium 138
Potassium 3.8
Chloride 106
Carbon Dioxide 24
BUN 13
Creatinine 0.5 L
Glucose 131 H
Calcium 9.5
Vital Signs:
Vital Signs
Temp Pulse Resp BP Pulse Ox
98 F 65 18 127/59 97
06/15/24 11:16 06/15/24 11:16 06/15/24 11:16 06/15/24 11:16 06/15/24 11:16
I&O
06/14/24 06/15/24 06/16/24
06:59 06:59 06:59
Intake Total 480 / 480
Balance 480 / 480
--- NOTE | 2024-06-15 16:05 | PTCARENOTE ---
Assumed care of patient at 15:00. No noted changes in assessment.
[2024-06-15 16:15] VITALS: BP 164/64
[2024-06-15 16:48] LABS: Glucose - Point of Care 144 mg/dl (70-99)
[2024-06-15 19:45] VITALS: BP 163/64
[2024-06-15] MEDS: LOW STRENGTH ASPIRIN 81 MG PO (20:02)
[2024-06-15] MEDS: IMDUR (EXTENDED RELEASE) 60 MG PO (20:02)
[2024-06-15 21:24] LABS: Glucose - Point of Care 194 mg/dl (70-99)
[2024-06-15 23:31] VITALS: BP 122/49
[2024-06-16 03:21] VITALS: BP 98/52
[2024-06-16 05:49] VITALS: BMI 23.7
[2024-06-16 06:40] LABS: Hematocrit 28.2 % (37.0-47.0); Hemoglobin 8.9 g/dL (12.0-16.0); Mean Corp Hgb Conc. 31.6 g/dL (33.0-37.0); Mean Corpuscular Hgb 24.2 pg (27.0-31.0); Mean Corpuscular Volume 76.6 fL (81.0-99.0); Mean Platelet Volume 9.3 fL (7.4-10.4); Platelet Count 257 10^3/uL (130-400); Red Blood Cell Count 3.68 10^6/uL (4.20-5.40); Red Cell Dist. Width 18.6 % (11.5-14.5); White Blood Cell Count 5.9 10^3/uL (4.8-10.8)
[2024-06-16 07:08] LABS: Blood Urea Nitrogen 11 mg/dl (7-17); Calcium 9.4 mg/dl (8.4-10.2); Carbon Dioxide 23 mmol/L (22-30); Chloride 102 mmol/L (98-107); Estimated Creatinine Clearance 62 ml/min; Glucose 138 mg/dl (70-99); Potassium 3.9 mmol/L (3.5-5.1); Sodium 136 mmol/L (135-145); eGFR > 60.00
[2024-06-16 07:30] VITALS: BP 132/49
[2024-06-16 07:34] LABS: Glucose - Point of Care 147 mg/dl (70-99)
[2024-06-16] MEDS: NOVOLOG FLEXPEN-LOW RESISTANCE SC (07:37)
[2024-06-16] MEDS: PROTONIX IV 40 MG IV (09:48)
[2024-06-16] MEDS: ZETIA 10 MG PO (09:49)
[2024-06-16] MEDS: COREG 25 MG PO (09:49)
[2024-06-16] MEDS: DIOVAN 80 MG PO (09:50)
[2024-06-16] MEDS: NSS (PRESERVATIVE FREE) 10 ML IV (09:53)
--- NOTE | 2024-06-16 10:25 | W.PN.GI.CBS2 ---
Addendum entered and electronically signed by Yg Simpson MD 06/16/24 11:43:
I saw and examined the patient.
The PA's note was reviewed and I agree with the note.
Comment:
No bleed o/n. Tolerating diet. Should f/u with colorectal surgery upon d/c home.
Original Note:
Today's Communication / Plan
-
No further bleeding since 06/15 AM
slight drop in hbg but no bleeding
cont to advance diet to low residue for lunch
cont IV iron
if recurrent large volume bleeding today proceed with CTA if + angio
hbg stable 9.1 transfuse less than 8 with hx CAD
discuss Vascepa with Dr. Cantu on follow up to see if she should continue with recurrent bleeding
cont PPI daily-- was on prior to admission
await [facility] records
left GI contact info for patient to schedule-- would like follow up to keep all MD's at same facility
will sign off call if any recurrent bleeding or problems
Assessment / Plan
-
78-year-old female with past medical history of CAD status postcardiac stents (05/2020), non-ST elevated SD, pericardial effusion, nonrheumatic mitral valve regurgitation, nonrheumatic aortic valve insufficiency, chronic heart failure with preserved
ejection fraction breast cancer, COPD, hypertension, hyperlipidemia, multiple episodes of diverticular bleeding dating back to 2017 with most recent in October 2023 presents to the emergency room with rectal bleeding and concern for recurrent
diverticular bleed. Patient with history of multiple GI bleeds presumed to be diverticular in nature per patient involving sigmoid colon while on Aleve in the past (2018), unprovoked by NSAIDs in 2019, both requiring blood product transfusion.
Repeat GI bleed October 2023 in the area of the splenic flexure while on aspirin and Plavix requiring blood transfusion and IR intervention for the first event, however stopped bleeding spontaneously. Second event 8 days later requiring colonoscopy.
At that point no blood products and required. Taken off Plavix at that point. Has remained on aspirin ever since. She states she is chronically iron deficient and gets iron infusions outpatient. She had an iron deficiency workup as well with
Dr. Ghosh at [facility] in the past including an endoscopy, capsule endoscopy and she has had multiple colonoscopies with no other source per patient other than her chronic diverticular bleeds. She states she has pandiverticulosis. She has had GI
follow up at [facility] but prefers as to keep all MD in same facility
Laboratory Tests
06/14/24 06/14/24 06/14/24
05:43 10:01 16:51
Hgb 9.8 L 10.2 L 10.5 L
06/14/24 06/15/24
22:48 05:48
Hgb 9.1 L 9.1 L
06/15/24 06/16/24
14:12 05:53
Hgb 9.6 L 8.9 L
Impression:
Lower GI bleed, most likely diverticular in nature given prior history
hx multiple GI bleeding in past
Plan:
No further bleeding since 313 AM
slight drop in hbg but no bleeding
cont to advance diet to low residue for lunch
cont IV iron
if recurrent large volume bleeding today proceed with CTA if + angio
hbg stable 9.1 transfuse less than 8 with hx CAD
discuss Vascepa with Dr. Cantu on follow up to see if she should continue with recurrent bleeding
cont PPI daily-- was on prior to admission
await [facility] records
left GI contact info for patient to schedule-- would like follow up to keep all MD's at same facility
will sign off call if any recurrent bleeding or problems
Subjective
Subjective
Date of Service: June 16, 2024
no further bleeding, tolerating full liquid diet
Objective
Data Reviewed
Laboratory Data:
Laboratory Results
06/16/24 05:53
06/16/24 05:53
Laboratory Results
Total Bilirubin 0.9 mg/dl (0.2-1.3) 06/14/24 01:18
AST 27 U/L (14-36) 06/14/24 01:18
ALT 19 U/L (0-35) 06/14/24 01:18
Alkaline Phosphatase 78 U/L (38-126) 06/14/24 01:18
Vital Signs and I&O:
Vital Signs
Temp Pulse Resp BP Pulse Ox
98.2 F 70 18 132/89 96
06/16/24 07:30 06/16/24 09:49 06/16/24 07:30 06/16/24 09:49 06/16/24 07:30
I&O
06/15/24 06/16/24 06/17/24
06:59 06:59 06:59
Intake Total 480 / 480 720 / 720
Balance 480 / 480 720 / 720
Physical Exam
Physical Exam
HEENT: Anicteric and Moist mucous membranes
Cardiology: Normal Sinus Rhythm
Pulmonary: Clear
GI: Soft, Non Distended and Tender (very minimal LLQ tenderness )
Extremities: No Edema
Neuro: Non Focal
[2024-06-16 11:30] VITALS: BP 156/65
[2024-06-16 13:12] LABS: Glucose - Point of Care 203 mg/dl (70-99)
--- NOTE | 2024-06-16 13:37 | W.PN.HOSP.TC ---
Today's Communication/Plan
-
Discharge today
Assessment / Plan
Assessment / Plan
Physical Exam
General: Not in acute distress
HEENT: Moist mucous membranes
Respiratory: Clear to Auscultation Bilaterally
Cardiac: S1/S2 and Regular Rate and Rhythm
GI: Soft, Non Tender, Non Distended and Normal Bowel Sounds
Musculoskeletal: No Cyanosis and No Edema
Neuro: AAO x 3. Nonfocal/grossly intact bilaterally.
Assessment/Plan
Patient is a 78y F with PMH significant for hypertension, DM-II and diverticular disease who presents to ED complaining of BRBPR this evening.
Lower GI Bleed - Likely Diverticular
Microcytic Anemia secondary to the above
History of multiple GI bleed with prior + CTA then neg angio
History of Iron Deficiency Anemia
- No more bleeding after 06/15/24 morning
- GI evaluation for additional recommendations.
- Follow H&H and transfuse as needed to maintain
- Ferrous Sulfate 325 mg PO Q48H on discharge
- Continue PPI daily
- Low Residue Diet
CAD status postcardiac stents (05/2020)
Non-ST elevated [place]
ASCVD
- Stable. No chest pain, dyspnea, etc.
- Continue Aspirin 81 mg daily. Patient's high-dose fish oil (Vascepa) is currently on hold due to risk of bleeding -- patient will discuss with Dr. Cantu regarding whether to resume this medication
- Continue carvedilol, statin, etc.
- Patient follows Dr. Cantu in cardiology outpatient
Benign Hypertension
- Adjust regimen as needed for adequate control.
DM-II
- Stable. Resume PO medications on discharge.
- Follow glucose and cover with SSI as needed.
- A1C is 6.5% -- but this could be false given bleeding and the history of iron deficiency anemia
COPD
- Stable. No dyspnea, etc.
- Albuterol PRN.
Hyperlipidemia
History of pericardial effusion
History of nonrheumatic mitral valve regurgitation
History of nonrheumatic aortic valve insufficiency
Chronic heart failure with preserved ejection fraction
Breast cancer
DVT Prophylaxis: SCDs only.
Code Status: Full
More than 30 minutes spent in discharge including
Final examination of the patient
Summarizing hospital stay
Instructions for continuing care to all relevant caregivers
Preparation of discharge records, prescriptions, and referral forms
Total time spent (in minutes): 37
Anticipated Discharge: Today
Subjective/Interval History
-
Date of Service: June 16, 2024
Patient was seen and examined. She denied any further bloody bowel movements.
Objective Data
-
Labs:
Laboratory Results
06/16/24
05:53
WBC 5.9
Hgb 8.9 L
Hct 28.2 L
Plt Count 257
Sodium 136
Potassium 3.9
Chloride 102
Carbon Dioxide 23
BUN 11
Creatinine 0.5 L
Glucose 138 H
Calcium 9.4
Vital Signs:
Vital Signs
Temp Pulse Resp BP Pulse Ox
99.4 F 70 18 156/65 97
06/16/24 11:30 06/16/24 11:30 06/16/24 11:30 06/16/24 11:30 06/16/24 11:30
I&O
06/15/24 06/16/24 06/17/24
06:59 06:59 06:59
Intake Total 480 / 480 720 / 720
Balance 480 / 480 720 / 720
[2024-06-16] MEDS: FERRLECIT 110 MG IV (13:56)
[2024-06-16] MEDS: NOVOLOG FLEXPEN-LOW RESISTANCE 2 UNITS SC (13:58)
--- NOTE | 2024-06-16 15:23 | W.DCSUMMARY ---
Discharge Summary
Discharge Data
Date of Admission: 06/14/24
Date of Discharge: 06/16/24
Total time spent discharging patient (in min): 37
-
Pending Results: No
Hospital Course
78 y/o female with past medical history significant for CAD status postcardiac stents, Non-ST elevated myocardial infarction, hypertension and diverticular disease who presented reporting bright red blood per rectum. Patient's Aspirin 81 mg daily
was continued given her heart disease, but her Vascepa was held due to increased risk of bleeding (this would need to be discussed with outpatient cardiology again). Patient was started on intravenous iron. Patient had several more episodes of
rectal bleeding during this hospitalization, but she otherwise remained asymptomatic and he hemoglobin was stable. Patient had no further bleeding and was stable for discharge with follow-up with colorectal surgery because of her recurrent
diverticular bleeds. Patient would have to follow-up with her police specialist Dr. Cantu regarding whether she should continue her Vascepa given recurrent gastrointestinal bleeding.
Discharge Plan
-
Patient Disposition: Home (Routine Discharge)
Discharge Diagnosis/Procedures: Lower Gastrointestinal (GI) Bleed - Likely Diverticular
Microcytic Anemia secondary to the above
History of multiple GI bleed
History of Iron Deficiency Anemia
CAD status postcardiac stents (05/2020)
Non-ST elevated SD
ASCVD
Benign Hypertension
Type 2 Diabetes Mellitus
Chronic Obstructive Pulmonary Disease
Hyperlipidemia
History of pericardial effusion
History of nonrheumatic mitral valve regurgitation
History of nonrheumatic aortic valve insufficiency
Chronic heart failure with preserved ejection fraction
Breast cancer
Condition: Good
Diet: Low Residue
Additional Diets: low residue x 2 weeks then slowly increased to regular and adding fiber to diet
Specialty Instructions: Weigh Daily- Call MD for wt gain/loss 3 lbs overnight/5 lbs in 1 week
Referrals:
Nadeem Torres DO [Family Provider] - in less than 1 week
Adenike Martinez DO [Active] - (call [phone] ext [phone] to arrange GI follow up 3-[address] Martinez or [facility] [employer]/PA)
Nadeem Mosley MD [Active] - in one to two weeks (Recurrent diverticular bleeding)
Collins Cantu MD [Active] - in two to three weeks (Continue Vascepa in setting of recurrent GI bleed?)
Additional Discharge Medication Instructions: Ferrous Sulfate (Iron) is a new medication -- you will need to check with your outpatient physician(s) to get more and refills if needed.
Tresiba Insulin Degludec is on hold -- discuss with your outpatient physician next week whether or not you should resume it.
Vascepa has been stopped -- discuss with Dr. Cantu whether or not you should resume it since it can increase the risk of bleeding.
Prescriptions:
New
ferrous sulfate 325 mg (65 mg iron) tablet,delayed release (DR/EC)
325 mg PO Q48H Qty: 14 0RF
Continued
lorazepam 0.5 MG tablet
0.5 mg PO HSPRN PRN (Reason: sleep)
Patient Comments:
12/10/20: last filled 12/02/20, 180 tabs for 90 days from [facility]
pantoprazole 40 MG tablet,delayed release (DR/EC)
40 mg PO DAILY
Repatha SureClick 140 MG/ML pen injector
140 mg SC Q14D
carvedilol 12.5 MG tablet
25 mg PO BID Qty: 60 0RF
valsartan 80 MG tablet
80 mg PO DAILY
Jardiance 10 MG tablet
10 mg PO DAILY Qty: 90 5RF
isosorbide mononitrate 60 MG tablet extended release 24 hr
60 mg PO HS Qty: 1 0RF
metformin 1,000 MG tablet
1,000 mg PO BID@0800,1700 Qty: 1 0RF
Rx Instructions:
resume on Wednesday pm
furosemide 20 MG tablet
20 mg PO DAILY Qty: 90 5RF
aspirin 81 MG tablet,chewable
81 mg PO HS Qty: 0 0RF
ezetimibe [Zetia] 10 mg Tablet
10 mg PO DAILY
Held
insulin degludec [Tresiba U-100 Insulin] 100 UNIT/ML solution
14 unit SQ HS
Hold Instructions: Resume on 07/07/24.
Discontinued
icosapent ethyl [Vascepa] 1 GM capsule
2 gm PO QID
Discharge Orders:
Discharge Patient (As Directed); Ordered 06/16/24
Ordered By: Robert Castillo
Discharge Date and Time
Discharge Date/Time: 06/16/24 17:25
Print Language: ICELANDIC
[2024-06-16 15:25] VITALS: BP 133/60
[2024-06-16 16:56] LABS: Glucose - Point of Care 203 mg/dl (70-99)
--- NOTE | 2024-06-16 18:07 | CM ---
MD entered order for discharge.
Spoke with pt she said she was ready for discharge.
Her dgt Ebenezer will drive her home.
She tolerated advanced diet.
Offered VN she declined need.
PLAN Home no needs
== END 2024-06-16 17:25 | disposition home or self-care (01) | DRG 378 ==
LOC: 4 EAST ACU 03:30
PROVIDERS: Nurse Practitioner; Nurse Practitioner Adult Health; ADMITTING PHYSICIAN Hospitalist; ATTENDING PHYSICIAN Hospitalist; CONSULT PHYSICIAN Internal Medicine; EMERGENCY PHYSICIAN Student in an Organized Health Care Education/Training Program; FAMILY PHYSICIAN Family Medicine
DX: K57.31 Diverticulosis of large intestine without perforation or abscess with bleeding (principal); I50.32 Chronic diastolic (congestive) heart failure; I11.0 Hypertensive heart disease with heart failure; E78.00 Pure hypercholesterolemia, unspecified; J44.9 Chronic obstructive pulmonary disease, unspecified; I08.0 Rheumatic disorders of both mitral and aortic valves; E11.9 Type 2 diabetes mellitus without complications; I25.10 Atherosclerotic heart disease of native coronary artery without angina pectoris; D50.9 Iron deficiency anemia, unspecified; I25.2 Old myocardial infarction; Z95.5 Presence of coronary angioplasty implant and graft; Z87.891 Personal history of nicotine dependence; Z85.3 Personal history of malignant neoplasm of breast; Z79.82 Long term (current) use of aspirin; Z79.84 Long term (current) use of oral hypoglycemic drugs; Z79.4 Long term (current) use of insulin; Z79.899 Other long term (current) drug therapy
CPT/HCPCS: 80048; 80053; 82728; 82962; 83036; 83540; 83605; 85014; 85018; 85025; 85027; 86850; 86870; 86900; 86901; 86905; 99284; J2916